=== PATIENT | female | born 1990 | race Caucasian/White ===

== ENCOUNTER 2017-11-16 18:35 | Emergency (ER) | payer OTHER, MEDICAID ==
[2017-11-16 20:00] LABS: URINE HCG POC HCG NEGATIVE (Negative)
[2017-11-16 20:08] LABS: BILIRUBIN,URINE NEGATIVE (NEG); CLARITY,URINE CLEAR; COLOR,URINE YELLOW; GLUCOSE,URINE NEGATIVE (NEG); NITRITE,URINE NEGATIVE (NEG); PH,URINE 6.5; PROTEIN,URINE 30 mg/dL (NEG-TRACE)
[2017-11-16 20:14] LABS: BACTERIA,URINE FEW /HPF (0-FEW); RBC,URINE 0 /HPF (0-2); SQUAMOUS EPITHELIAL CELL,UR FEW /LPF; WBC,URINE OCC /HPF (0-4)
[2017-11-16 20:28] LABS: ADD MAN DIFF? NO
[2017-11-16 20:30] LABS: BASO % 0 % (0-3); EOS # 0.1 x10^3/uL (0.0-0.7); EOS % 2 % (0-3); HEMATOCRIT 41.3 % (36.0-47.0); HEMOGLOBIN 13.5 g/dL (12.0-15.5); LYMPH # 2.4 x10^3/uL (1.0-4.8); LYMPH % 30 % (24-48); MEAN CORPUSCULAR HEMOGLOBIN 28 pg (25-35); MEAN CORPUSCULAR HGB CONC 33 g/dL (31-37); MEAN CORPUSCULAR VOLUME 86 fL (79-100); MONO # 0.9 x10^3/uL (0.0-1.1); MONO % 11 % (0-9); NEUT # 4.5 x10^3uL (1.8-7.7); NEUT % 56 % (31-73); PLATELET COUNT 215 x10^3/uL (140-400); RED BLOOD COUNT 4.82 x10^6/uL (3.50-5.40); RED CELL DISTRIBUTION WIDTH 15.3 % (11.5-14.5)
[2017-11-16] MEDS: IV NORMAL SALINE 1000ML BAG 1,000 ML IV (20:30)
[2017-11-16] MEDS: ONDANSETRON PF 4 MG/2 ML VIAL. IV (20:31)
[2017-11-16] MEDS: fentaNYL PF VIAL 100 MCG/2 ML VIAL IV (20:32)
[2017-11-16] MEDS: KETOROLAC 30 MG/ML INJ. IV (20:32)
[2017-11-16 20:42] LABS: ANION GAP 8 (6-14); BLOOD UREA NITROGEN 13 mg/dL (7-20); BUN/CREATININE RATIO 22 (6-20); CALCIUM 8.1 mg/dL (8.5-10.1); CARBON DIOXIDE 26 mmol/L (21-32); CHLORIDE 105 mmol/L (98-107); CREATININE 0.6 mg/dL (0.6-1.0); GFR 118.2; GLUCOSE 105 mg/dL (70-99); POTASSIUM 3.4 mmol/L (3.5-5.1); SODIUM 139 mmol/L (136-145)
[2017-11-16] MEDS ORDERED: CONTRAST GIVEN MC (20:45)
[2017-11-16 20:53] LABS: ETHANOL < 10 mg/dL (0-10)
[2017-11-16] MEDS: IOHEXOL 300 MG/ML 100ML VIAL. IV (20:53)
[2017-11-16 20:54] LABS: ALBUMIN/GLOBULIN RATIO 0.8 (1.0-1.7); ALK PHOS 129 U/L (46-116); ALT (SGPT) 56 U/L (14-59); AST (SGOT) 25 U/L (15-37); LIPASE 114 U/L (73-393); MAGNESIUM 1.7 mg/dL (1.8-2.4); TOTAL BILIRUBIN 0.1 mg/dL (0.2-1.0); TOTAL PROTEIN 6.9 g/dL (6.4-8.2)
[2017-11-16] MEDS: POTASSIUM CHLORIDE 20 MEQ TABLET.ER. PO (22:46)
[2017-11-16] MEDS: MAGNESIUM OXIDE 400 MG TABLET PO (22:46)
== END 2017-11-16 22:40 | disposition home or self-care (01) ==
LOC: ER 22:40
DX: R10.84 Generalized abdominal pain (principal); B34.9 Viral infection, unspecified; M79.1 Myalgia; M25.50 Pain in unspecified joint; Z90.49 Acquired absence of other specified parts of digestive tract
CPT/HCPCS: 36415; 74177; 80053; 81001; 81025; 83690; 83735; 85025; 87086; 96361; 96374; 96375; 99285-25; G0480; J1885; J2405; J3010; J7030; Q9967

== ENCOUNTER 2017-11-26 10:07 | Emergency (ER) | payer OTHER ==
[2017-11-26] MEDS: LOPERAMIDE 2 MG CAPSULE PO ×2 (10:56)
[2017-11-26 10:59] LABS: INFLUENZA A PATIENT NEGATIVE (NEGATIVE); INFLUENZA B PATIENT NEGATIVE (NEGATIVE)
[2017-11-26 11:00] LABS: OBC FLU VALID
== END 2017-11-26 11:01 | disposition home or self-care (01) ==
LOC: ER 10:07
DX: R11.2 Nausea with vomiting, unspecified (principal); R19.7 Diarrhea, unspecified; F17.200 Nicotine dependence, unspecified, uncomplicated; Z90.49 Acquired absence of other specified parts of digestive tract
CPT/HCPCS: 87804; 87804-59; 99284

== ENCOUNTER 2018-06-24 15:25 | Emergency (ER) | payer OTHER ==
[2017-11-26 10:20] VITALS: BP 107/57
[~2018-06-24 15:25] MED LIST: DICY10CA53 PO; DIPH1TAB PO; DOCU-109 PO; HYDR-971 PO; IBUP-1060 PO; ONDA4TAB10 PO; OXYC-323 PO; PNV1TABL34 PO
== END 2018-06-24 17:25 | disposition left against medical advice (07) ==
LOC: ER 15:25
DX: R05 Cough (principal); H92.09 Otalgia, unspecified ear

== ENCOUNTER 2019-09-04 12:50 | Emergency (ER) | payer SELFPAY ==
[2017-11-26 10:20] VITALS: BP 107/57
[~2019-09-04 12:50] MED LIST changes: +HYDR-3164 PO; -HYDR-971 PO; -OXYC-323 PO; +OXYC1TAB15 PO
== END 2019-09-04 13:49 | disposition left against medical advice (07) ==
LOC: ER 12:50
DX: R07.81 Pleurodynia (principal); Z53.21 Procedure and treatment not carried out due to patient leaving prior to being seen by health care provider

== ENCOUNTER 2021-01-28 18:45 | Emergency (ER) | payer OTHER ==
[~2021-01-28] VITALS: Ht 172.7 cm; Wt 81.0 kg
[2021-01-28 19:32] LABS: BILIRUBIN,URINE NEGATIVE (NEG); CLARITY,URINE CLEAR; COLOR,URINE YELLOW; NITRITE,URINE NEGATIVE (NEG); PROTEIN,URINE NEGATIVE (NEG-TRACE); UROBILINOGEN,URINE 0.2 mg/dL (0.2 mg/dL)
--- NOTE | 2021-01-28 19:36 | PHYS DOC ---
Past Medical History Past Medical History: Other Additional Past Medical Histor: ovarian cysts; ruptured appendix with out being removed Past Surgical History: Cholecystectomy, Smoking Status: Current Every Day Smoker Alcohol Use: None Drug Use: None General Adult EDM: Chief Complaint: FLANK PAIN HPI: HPI: Patient is a 30 year old female presents with a chief complaint of right flank pain. Patient states she has had flank pain for the last 3 days progressively becoming worse since onset. Patient states she has had nausea without vomiting. She denies any fever chills or urinary issues. Patient denies any previous history of kidney stones but states has a strong family history. Review of Systems: Review of Systems: Review of systems: Constitutional symptoms- No fever, no chills. Eyes- No Discharge, No Visual Loss Respiratory symptoms- No shortness of breath, No wheezing, No Dyspnea on Exertion Cardiovascular Systems; No chest pain, No Palpitations, No syncope Gastrointestinal symptoms: NO abdominal pain, positive nausea, no vomiting or diarrhea. Genitourinary symptoms: No dysuria. Positive flank pain Musculoskeletal symptoms: No back pain No extremity pain. NEUROLOGICAL Symptoms: No headache, no generalized weakness; No focal Weakness Heart Score: C/O Chest Pain: N/A Risk Factors: Risk Factors: DM, Current or recent (<one month) smoker, HTN, HLP, family history of CAD, obesity. Risk Scores: Score 0 - 3: 2.5% MACE over next 6 weeks - Discharge Home Score 4 - 6: 20.3% MACE over next 6 weeks - Admit for Clinical Observation Score 7 - 10: 72.7% MACE over next 6 weeks - Early Invasive Strategies Current Medications: Current Medications Medications (Trade) Dose Ordered Sig/[facility] Start Time Stop Time Status Last Admin Dose Admin Ketorolac Tromethamine (Toradol 30mg Vial) 30 mg 1X ONCE 01/28/21 19:30 01/28/21 19:31 UNV Sodium Chloride 1,000 ml @ 1,000 mls/hr 1X ONCE 01/28/21 19:30 01/28/21 20:29 UNV Allergies: Allergies: Allergies Coded Allergies Type Severity Reaction Last Updated Verified No Known Drug Allergies 12/31/14 No Physical Exam: PE: General: alert, no acute distress. Skin: warm, dry and intact. Head:: Normocephalic, atraumatic. Neck: Trachea midline. Eyes: EOMI, Normal conjunctiva, No drainage CARDIOVASCULAR: Regular rate and rhythm RESPIRATORY: No respiratory distress Back: Full range of motion. MUSCULOSKELETAL: Full range of motion of bilateral upper and lower extremities. GASTROINTESTINAL: Abdomen soft without rebound or guarding. NEUROLOGICAL: Alert and noted to person, place and time. No neurological deficits observed Psychiatric: Cooperative. Normal judgment Current Patient Data: Labs: Laboratory Tests Test 01/28/21 19:22 POC Urine HCG, Qualitative Hcg negative (Negative) EKG: EKG: [] Radiology/Procedures: Radiology/Procedures: [] Impression: Indication: Right flank pain. Comparison: 11/16/2017 Technique: Helical CT imaging performed of the abdomen and pelvis without the use of intravenous contrast. Sagittal and coronal reformats were obtained. One or more of the following individualized dose reduction techniques were utilized for this examination: 1. Automated exposure control 2. Adjustment of the mA and/or kV according to patient size 3. Use of iterative reconstruction technique. Findings: Inherently limited evaluation without intravenous contrast. No significant abnormality at the lower chest. Unremarkable liver, pancreas, spleen and adrenal glands. Surgically absent gallbladder. No hydronephrosis on either side. The right renal pelvic fat is faintly less well delineated relative to the left. No nephrolithiasis within either kidney or ureter. No recently passed stone into the urinary bladder. The urinary bladder wall appears mildly thickened but is underdistended. Unremarkable uterus and adnexa for patient age. Mild volume colonic stool burden. No inflammatory changes along the expected course the appendix noting that the appendix is not well-visualized. Nonobstructed small bowel. Unremarkable stomach. Nonaneurysmal aorta. No lymphadenopathy. No free fluid or pneumoperitoneum. No complex body wall hernia. No acute or aggressive osseous process. Impression: 1. No nephrolithiasis or collecting system dilatation on the right or left. The urinary bladder wall appears mildly thickened but the bladder is not fully distended. Recommend correlation with urinalysis to exclude a urinary tract infection. 2. Mild volume colonic stool burden. Course & Med Decision Making: Course & Med Decision Making Pertinent Labs and Imaging studies reviewed. (See chart for details) [] Patient was evaluated for chief complaint. Work-up consisted of laboratory analysis and radiologic imaging. Results reviewed and discussed with patient. Treatment included Toradol morphine Rocephin. CT imaging no kidney stones no acute intra-abdominal abnormalities. Imaging consistent with constipation. Charge home with Bentyl, Macrobid, and MiraLAX Sandra Disclaimer: Sandra Disclaimer: This electronic medical record was generated, in whole or in part, using a voice recognition dictation system. Departure Departure Impression: Primary Impression: Flank pain Additional Impressions: Constipation UTI (urinary tract infection) Disposition: 01 DC HOME SELF CARE/HOMELESS Referrals: NO PCP (PCP) Patient Instructions: Constipation, Adult, Flank Pain, Urinary Tract Infection Scripts Polyethylene Glycol 3350 (MIRALAX) 17 Gm Powd.pack 1 PACKET PO DAILY for constipation for 2 Days, #2 PACKET 0 Refills dissolve in water Prov: ADRI LOWERY DO 01/28/21 Dicyclomine Hcl (DICYCLOMINE HCL) 10 Mg Capsule 10 MG PO QID, #14 CAP Prov: ADRI LOWERY DO 01/28/21 Nitrofurantoin Monohyd/M-Cryst (MACROBID 100 MG CAPSULE) 100 Mg Capsule 1 CAP PO BID for 10 Days, #20 CAP 0 Refills Prov: ADRI LOWERY DO 01/28/21 ADRI LOWERY DO Jan 28, 2021 19:36
[2021-01-28 19:37] LABS: BACTERIA,URINE FEW /HPF (0-FEW)
[2021-01-28] MEDS ORDERED: IV NORMAL SALINE 1000ML BAG 1,000 ML IV ONE (20:00)
[2021-01-28] MEDS ORDERED: KETOROLAC 30 MG/ML VIAL. IVP ONE (20:00)
[2021-01-28] MEDS ORDERED: MORPHINE SULFATE 4 MG/ML VIAL. IV ONE ×2 (20:15→21:30)
[2021-01-28 20:16] LABS: BASO # 0.1 x10^3/uL (0.0-0.2); BASO % 1 % (0-3); EOS # 0.2 x10^3/uL (0.0-0.7); EOS % 2 % (0-3); HEMATOCRIT 42.7 % (36.0-47.0); HEMOGLOBIN 14.3 g/dL (12.0-15.5); LYMPH # 2.1 x10^3/uL (1.0-4.8); LYMPH % 20 % (24-48); MEAN CORPUSCULAR HEMOGLOBIN 30 pg (25-35); MEAN CORPUSCULAR HGB CONC 34 g/dL (31-37); MEAN CORPUSCULAR VOLUME 89 fL (79-100); MONO # 0.8 x10^3/uL (0.0-1.1); MONO % 7 % (0-9); NEUT # 7.8 x10^3/uL (1.8-7.7); NEUT % 71 % (31-73); PLATELET COUNT 193 x10^3/uL (140-400); RED BLOOD COUNT 4.81 x10^6/uL (3.50-5.40); RED CELL DISTRIBUTION WIDTH 13.1 % (11.5-14.5)
[2021-01-28 20:26] LABS: CALCIUM 8.4 mg/dL (8.5-10.1); CREATININE 0.8 mg/dL (0.6-1.0); GFR 83.1; POTASSIUM 4.3 mmol/L (3.5-5.1)
[2021-01-28 20:32] LABS: ALBUMIN 3.1 g/dL (3.4-5.0); ALBUMIN/GLOBULIN RATIO 0.9 (1.0-1.7); TOTAL BILIRUBIN 0.1 mg/dL (0.2-1.0); TOTAL PROTEIN 6.7 g/dL (6.4-8.2)
--- NOTE | 2021-01-28 21:17 | RAD ---
Study: CT abdomen/pelvis without intravenous contrast Indication: Right flank pain. Comparison: 11/16/2017 Technique: Helical CT imaging performed of the abdomen and pelvis without the use of intravenous cont rast. Sagittal and coronal reformats were obtained. One or more of the following individualized dose reduction techniques were utilized for this examinat ion: 1. Automated exposure control 2. Adjustment of the mA and/or kV according to patient size 3. Use of iterative reconstruction technique. Findings: Inherently limited evaluation without intravenous contrast. No significant abnormality at the lower chest. Unremarkable liver, pancreas, spleen and adrenal glands. Surgically absent gallbladder. No hydronephr osis on either side. The right renal pelvic fat is faintly less well delineated relative to the left. No nephrolithiasis within either kidney or ureter. No recently passed stone into the urinary bladder . The urinary bladder wall appears mildly thickened but is underdistended. Unremarkable uterus and adnexa for patient age. Mild volume colonic stool burden. No inflammatory changes along the expected course the appendix noti ng that the appendix is not well-visualized. Nonobstructed small bowel. Unremarkable stomach. Nonaneurysmal aorta. No lymphadenopathy. No free fluid or pneumoperitoneum. No complex body wall michele ia. No acute or aggressive osseous process. Impression: 1. No nephrolithiasis or collecting system dilatation on the right or left. The urinary bladder wall appears mildly thickened but the bladder is not fully distended. Recommend correlation with urinalys is to exclude a urinary tract infection. 2. Mild volume colonic stool burden. Electronically signed by: DEBBIE DU MD (01/28/2021 9:15 PM) [facility]
[2021-01-28] MEDS ORDERED: DICY10CA3 PO (21:23)
[2021-01-28] MEDS ORDERED: NITR100C62 PO (21:23)
[2021-01-28] MEDS ORDERED: POLY17PO29 PO (21:23)
[2021-01-28] MEDS ORDERED: cefTRIAXone IV Push 1 GM VIAL. IVP ONE (21:30)
[2021-01-28 21:45] VITALS: BP 107/63
== END 2021-01-28 22:20 | disposition home or self-care (01) ==
LOC: ER 18:45
DX: N39.0 Urinary tract infection, site not specified (principal); K59.00 Constipation, unspecified; R10.9 Unspecified abdominal pain; F17.200 Nicotine dependence, unspecified, uncomplicated; Z90.49 Acquired absence of other specified parts of digestive tract; Z98.890 Other specified postprocedural states
CPT/HCPCS: 36415; 74176; 80053; 81001; 81025; 85025; 87086; 96361; 96374; 96375; 99285; J0696; J1885; J2270; J7030